=== PATIENT | female | born 1935 | race Caucasian/White ===

== ENCOUNTER 2017-01-07 10:11 | Emergency (ER) | payer MEDICARE ==
[~2017-01-07] VITALS: Ht 167.6 cm; Wt 77.1 kg
[~2017-01-07 10:11] MED LIST: ACIDOPHILUS1 CAP PO; AUGMENTIN 875-1 EACH PO; BACTRIM DS 8001 TAB PO; CLINDAMYCIN300 MG PO; CRESTOR10 MG PO; LISINOPRIL 10MG10 MG PO; LOPRESSOR 50 MG50 MG PO; LOVASTATIN40 MG PO; METAMUCIL0.52 GM PO; MIRALAX17 GM/PACK PO; MOBIC15 MG PO; NITROGLYCERIN0.4 MG SL; PERCOCET 5/3251 EACH PO; PREDNISONE 20MG20 MG PO; PROBIOTIC FORMU1 CA2 PO; SULFACETAMIDE S15 M1 OP; TOPROL XL100 MG PO; VANCOCIN HCL1000 M1 IV
[2017-01-07] MEDS ORDERED: GABAPENTIN100 MG PO (10:23)
[2017-01-07] MEDS ORDERED: GABAPENTIN100 M1 PO (10:24)
[2017-01-07] MEDS ORDERED: DULOXETINE HYDR30 MG PO (10:24)
--- NOTE | 2017-01-07 10:34 | Emergency Room Report ---
History of Present Illness Time Seen by [id number] Presenting Problem in Triage Pt arrived:Walked Presenting Problem:PT REPORTS TRIPPING AND FALLING WHILE OUTSIDE TRIMMING BUSHES. PT STATES HIT HER HEAD ON AN IRON PLANTER. PT REPORTS FEELING DIZZY WHILE WALKING. PT DENIES LOC Onset of symptoms date/time:01/07/17 or onset unknown for: Treatment Prior to Arrival: MAINTENANCE LEADER Provided by: Sepsis Risk Assessment: Temp: 98.0 B/P: 184/81 MAP: 115 Pulse: 75 Resp: 16 Recent fever? N Clinical Suspician of Infection? N Mental Status: 1 - Regular (Normal Baseline) Sepsis Risk:Low Sepsis Risk Have you (or family members/close friends) recently traveled outside the [place]? N If Yes, where/when: Have you had exposure to infectious disease within the past month? N TB? Other? Specify: Patient has baseline peripheral neuropathy, unknown etiology, per [facility]. She uses her walker only occasionally. Today she pitched forward while gardening, with neg LOC. 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 She has diffuse neck pain without any acute neurological changes. She denies any precipitating vertigo, near syncope, or chest pain or palpitations. ALLERGIES Coded Allergies: hydromorphone (From DILAUDID) (PARALYSIS 02/20/16) metronidazole (NA-NAUSEA/VOMITING 02/20/16) morphine (02/20/16) pentazocine (02/20/16) Home Medications Active Scripts Meloxicam (Mobic 15MG) 15 MG PO DAILY #30 TAB Prov: 09/20/15 Reported Medications LISINOPRIL (Lisinopril) 10 MG PO DAILY Gabapentin (Gabapentin 100MG) 300 MG PO TID #270 Gabapentin (Gabapentin 100MG) 400 MG PO QHS DULOXETINE HCL (Duloxetine Hydrochloride) 30 MG PO BID #60 History Medical History General CAD? No Angina: No [place]: No Hypertension? Yes Hyperlipidemia? Yes CHF? No DVT? No PE? No COPD? No Asthma? No Anemia? No GERD? Yes Gastric ulcers? No GI Bleed? No Hernia? No Thyroid Problems? No Hypothyroidism? No CVA? No Seizures? No Diabetes? No Renal Insuffiency? No End Stage Renal Disease? No UTI? No Stones? No BPH? No GB Disease: No Nephritic Syndrome? No Asplenia? No Hepatitis? No Sickle Cell Disease? No Arthritis? Yes Migraines? No Cataracts? Yes Glaucoma? No MRSA? No HIV? No TB? No Anxiety? No Depression? No Cancer? Yes Site: BREAST More? No Immunization Hx DT/Tetanus 1-4 Years Ago Flu 2015-16FSN Pneumonia Received In Past Surgical Hx Previous Surgery?Y BILAT MASTECTOMY RT R CUFF LT KNEE REPLACEMENT RT HAND SURGERYX4 HYSTERECTOMY Back Surgery LT HAND SURGERY X 1 Family History Family Hx Diabetes No CAD Yes Hypertension Yes Hyperlipidemia Yes Cancer No TB No Social History Smoking Hx Smoker: Never Smoker Tobacco: No Packs/day N/A Alcohol Alcohol: No Review of Systems All Other Systems Reviewed and Negative Musculoskeletal see HPI Psychiatric/Neurological see HPI, pre-existing deficit Physical Exam Vital Signs Vital Signs Date Time Temp Pulse Resp B/P Pulse O2 O2 Flow FiO2 Ox Delivery Rate 01/07 1015 98.0 75 16 184/81 97 General Appearance normal appearance, WD/WN, no apparent distress Eye Exam - bilateral eye normal exam, bilateral eye PERRL, bilateral eye EOMI Ear, Nose, Throat normal ENT inspection, laceration just posterior and superior to left ear, about three cm, bleeding controlled, linear, subcutaneous, no FB. No crepitus, deformities, or stepoffs noted. Neck very mild muscular tenderness diffusely w/o any vertebral tenderness. Respiratory Status Yes: trachea midline, chest symmetrical, non tender chest. No: respiratory distress, tender on palpation, use of accessory muscles, pain on inspiration, pain on expiration, productive cough, non productive cough. Lung Sounds bilateral: normal breath sounds, lungs clear. Cardiovascular normal exam, regular rate/rhythm, no peripheral edema, no gallop, no JVD, no murmur, no rub, normal peripheral pulses Gastrointestinal normal bowel sounds, normal exam, non tender, soft, no organomegaly, no pulsatile mass, no guarding, no rebound Extremities non-tender (R hip pain on palpation), normal range of motion, normal inspection, normal capillary refill, pelvis stable Neurologic alert (personnel consultant equal speech clear), material lister II-XII nml as tested, oriented x 3 (baseline periphral neuropathy), No tremor; nonfocal exam; has diminished sensation baseline to all limbs distally. Glascow Coma Scale Glascow Coma Scale Response Value EYE response: 4 Spontaneously 4 MOTOR response: 6 OBEYS 6 VERBAL response: 5 Oriented & Converses 5 Total 15 Reflexes Reflexes normal No DTR 1+ ankle (R), 1+ ankle (L) (has baseline neuro deficits) Skin laceration(s) (see above: scalp lac) Medical Decision Making LABS/Meds/Orders Pt receiving controlled substance in ED? No Results/Orders Current Medication Orders Sig/Fernando Start time Last Medication Dose Route Stop Time Status Admin Acetaminophen 650 MG ONCE ONE 01/07 1130 AC PO 01/07 1131 Lidocaine HCl 10 ML ONCE ONE 01/07 1045 DC SC 01/07 1046 Lidocaine HCl 0 .STK-MED ONE 01/07 1044 DC .ROUTE Orders Procedure Date/time Status DIET-NOTHING BY MOUTH 01/07 L Active HIP RT 2-3V W/PELVIS IF PERFOR 01/[address] HEAD REQ 01/[address] SCAN REQ 01/07 1019 Active XRAY/CT/US XRAY/CT/US XRAY hip XR interpretation by reviewed by me Xray Results normal/NAD, no fracture seen (DJD neg acute) CT head, C-spine CT interpretation by reviewed by me (report reviewed) Time results known: 1117 CT Results no fracture seen (DJD and stenosis neg acute) Procedures Laceration/Wound Repair Laceration/Wound Repair Risks/benefits discussed with pt/guardian? Yes Tetanus status up to date Wound Location head Wound Length (cm) 3 Wound's Depth, Shape sucutaneous tissue, linear Wound Explored clean Irrigated w/ Saline (ccs) 20 Wound Prep Hibiclens Anesthesia 1% Lidocaine Volume Anesthetic (ccs) 3 Wound Debrided none Wound Repaired With nancy Layer Closure No Total Number Sutures 4 Sterile Dressing Applied No Departure Departure Time of Disposition 111 Disposition DC Home or Self Care(routine) Clinical Impression Primary Impression: Laceration of head Qualifiers: Encounter type: initial encounter Foreign body presence: without foreign body Laterality: left Secondary Impressions: Contusion of hip, right Qualifiers: Encounter type: initial encounter Qualified Code: S70.01XA - Contusion of right hip, initial encounter Fall Condition STABLE Referrals Benjy Mcduffie MD (Family) Patient Instructions Laceration Repair Additional Instructions [place] out per Dr. Mcduffie in 7-10 days. Discharge Counseling Counseled pt/family regarding diagnosis, test results, medications/RX, home care, follow up needs ED Critical Care Critical Care No at 1127
--- NOTE | 2017-01-07 10:34 | Emergency Room Report ---
History of Present Illness Time Seen by [id number] Presenting Problem in Triage Pt arrived:Walked Presenting Problem:PT REPORTS TRIPPING AND FALLING WHILE OUTSIDE TRIMMING BUSHES. PT STATES HIT HER HEAD ON AN IRON PLANTER. PT REPORTS FEELING DIZZY WHILE WALKING. 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 N Clinical Suspician of Infection? N Mental Status: 1 - Regular (Normal Baseline) Sepsis Risk:Low Sepsis Risk Have you (or family members/close friends) recently traveled outside the [place]? N If Yes, where/when: Have you had exposure to infectious disease within the past month? N TB? Other? Specify: Patient has baseline peripheral neuropathy, unknown etiology, per [facility]. She uses her walker only occasionally. Today she pitched forward while gardening, with neg LOC. 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 She has diffuse neck pain without any acute neurological changes. She denies any precipitating vertigo, near syncope, or chest pain or palpitations. ALLERGIES Coded Allergies: hydromorphone (From DILAUDID) (PARALYSIS 02/20/16) metronidazole (NA-NAUSEA/VOMITING 02/20/16) morphine (02/20/16) pentazocine (02/20/16) Home Medications Active Scripts Meloxicam (Mobic 15MG) 15 MG PO DAILY #30 TAB Prov: 09/20/15 Reported Medications LISINOPRIL (Lisinopril) 10 MG PO DAILY Gabapentin (Gabapentin 100MG) 300 MG PO TID #270 Gabapentin (Gabapentin 100MG) 400 MG PO QHS DULOXETINE HCL (Duloxetine Hydrochloride) 30 MG PO BID #60 History Medical History General CAD? No Angina: No [place]: No Hypertension? Yes Hyperlipidemia? Yes CHF? No DVT? No PE? No COPD? No Asthma? No Anemia? No GERD? Yes Gastric ulcers? No GI Bleed? No Hernia? No Thyroid Problems? No Hypothyroidism? No CVA? No Seizures? No Diabetes? No Renal Insuffiency? No End Stage Renal Disease? No UTI? No Stones? No BPH? No GB Disease: No Nephritic Syndrome? No Asplenia? No Hepatitis? No Sickle Cell Disease? No Arthritis? Yes Migraines? No Cataracts? Yes Glaucoma? No MRSA? No HIV? No TB? No Anxiety? No Depression? No Cancer? Yes Site: BREAST More? No Immunization Hx DT/Tetanus 1-4 Years Ago Flu 2015-16FSN Pneumonia Received In Past Surgical Hx Previous Surgery?Y BILAT MASTECTOMY RT R CUFF LT KNEE REPLACEMENT RT HAND SURGERYX4 HYSTERECTOMY Back Surgery LT HAND SURGERY X 1 Family History Family Hx Diabetes No CAD Yes Hypertension Yes Hyperlipidemia Yes Cancer No TB No Social History Smoking Hx Smoker: Never Smoker Tobacco: No Packs/day N/A Alcohol Alcohol: No Review of Systems All Other Systems Reviewed and Negative Musculoskeletal see HPI Psychiatric/Neurological see HPI, pre-existing deficit Physical Exam Vital Signs Vital Signs Date Time Temp Pulse Resp B/P Pulse O2 O2 Flow FiO2 Ox Delivery Rate 01/07 1015 98.0 75 16 184/81 97 General Appearance normal appearance, WD/WN, no apparent distress Eye Exam - bilateral eye normal exam, bilateral eye PERRL, bilateral eye EOMI Ear, Nose, Throat normal ENT inspection, laceration just posterior and superior to left ear, about three cm, bleeding controlled, linear, subcutaneous, no FB. No crepitus, deformities, or stepoffs noted. Neck very mild muscular tenderness diffusely w/o any vertebral tenderness. Respiratory Status Yes: trachea midline, chest symmetrical, non tender chest. No: respiratory distress, tender on palpation, use of accessory muscles, pain on inspiration, pain on expiration, productive cough, non productive cough. Lung Sounds bilateral: normal breath sounds, lungs clear. Cardiovascular normal exam, regular rate/rhythm, no peripheral edema, no gallop, no JVD, no murmur, no rub, normal peripheral pulses Gastrointestinal normal bowel sounds, normal exam, non tender, soft, no organomegaly, no pulsatile mass, no guarding, no rebound Extremities non-tender (R hip pain on palpation), normal range of motion, normal inspection, normal capillary refill, pelvis stable Neurologic alert (oracle hrms consultant equal speech clear), burlapper II-XII nml as tested, oriented x 3 (baseline periphral neuropathy), No tremor; nonfocal exam; has diminished sensation baseline to all limbs distally. Glascow Coma Scale Glascow Coma Scale Response Value EYE response: 4 Spontaneously 4 MOTOR response: 6 OBEYS 6 VERBAL response: 5 Oriented & Converses 5 Total 15 Reflexes Reflexes normal No DTR 1+ ankle (R), 1+ ankle (L) (has baseline neuro deficits) Skin laceration(s) (see above: scalp lac) Medical Decision Making LABS/Meds/Orders Pt receiving controlled substance in ED? No Results/Orders Current Medication Orders Sig/Fernando Start time Last Medication Dose Route Stop Time Status Admin Acetaminophen 650 MG ONCE ONE 01/07 1130 AC PO 01/07 1131 Lidocaine HCl 10 ML ONCE ONE 01/07 1045 DC SC 01/07 1046 Lidocaine HCl 0 .STK-MED ONE 01/07 1044 DC .ROUTE Orders Procedure Date/time Status DIET-NOTHING BY MOUTH 01/07 L Active HIP RT 2-3V W/PELVIS IF PERFOR 01/[address] HEAD REQ 01/[address] SCAN REQ 01/07 1019 Active XRAY/CT/US XRAY/CT/US XRAY hip XR interpretation by reviewed by me Xray Results normal/NAD, no fracture seen (DJD neg acute) CT head, C-spine CT interpretation by reviewed by me (report reviewed) Time results known: 1117 CT Results no fracture seen (DJD and stenosis neg acute) Procedures Laceration/Wound Repair Laceration/Wound Repair Risks/benefits discussed with pt/guardian? Yes Tetanus status up to date Wound Location head Wound Length (cm) 3 Wound's Depth, Shape sucutaneous tissue, linear Wound Explored clean Irrigated w/ Saline (ccs) 20 Wound Prep Hibiclens Anesthesia 1% Lidocaine Volume Anesthetic (ccs) 3 Wound Debrided none Wound Repaired With nancy Layer Closure No Total Number Sutures 4 Sterile Dressing Applied No Departure Departure Time of Disposition 111 Disposition DC Home or Self Care(routine) Clinical Impression Primary Impression: Laceration of head Qualifiers: Encounter type: initial encounter Foreign body presence: without foreign body Laterality: left Secondary Impressions: Contusion of hip, right Qualifiers: Encounter type: initial encounter Qualified Code: S70.01XA - Contusion of right hip, initial encounter Fall Condition STABLE Referrals Benjy Mcduffie MD (Family) Patient Instructions Laceration Repair Additional Instructions [place] out per Dr. Mcduffie in 7-10 days. Discharge Counseling Counseled pt/family regarding diagnosis, test results, medications/RX, home care, follow up needs ED Critical Care Critical Care No at 1124
--- NOTE | 2017-01-07 10:59 | RADIOLOGY REPORT PS360 ---
CT HEAD W/O CONTRAST HISTORY: Headache/head pain following injury the left side of the head, contusion RECENT FALL ORDERING PHYSICIAN: Renetta Yip MD PATIENT AGE: 81 years COMPARISON: None TECHNIQUE: Axial images obtained without contrast. Brain and bone windows reviewed. FINDINGS: No midline shift, mass effect, intracranial hemorrhage, hydrocephalus, or extra-axial fluid collection is evident. There is generalized atrophy with nonspecific hypoattenuation in the periventricular region and mild prominence of the lateral ventricles likely due to the volume loss. The calvarium has an unremarkable appearance. Small scalp contusion noted in the left parietal region No mastoid effusion. The visualized paranasal sinuses are unremarkable. IMPRESSION: 1. No acute intracranial pathology. 2. Atrophy with chronic ischemic changes. 3. Small scalp contusion
--- NOTE | 2017-01-07 11:04 | RADIOLOGY REPORT PS360 ---
CT CERVICAL SPINE W/O CONT INDICATION: Neck pain following injury RECENT FALL ORDERING PHYSICIAN: Renetta Yip MD PATIENT AGE: 81 years COMPARISON: None TECHNIQUE: Axial images are obtained without contrast. Sagittal and coronal reformatted images are reviewed as well. 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 No fracture or dislocation is evident. There is multilevel degenerative disc disease with facet spondylosis. There is bilateral foraminal narrowing at C2-C3 and left foraminal narrowing at C3-C4. Severe degenerative disc disease noted at C5-C6 with endplate osteophytes with canal stenosis and bilateral foraminal and lateral recess narrowing. 3 mm anterolisthesis C4 on C5 likely degenerative. There is minimal disc calcification at C2-C3 and C3-C4. Incidental note is made of enlarged right lobe of the thyroid gland with heterogeneous density with some calcification. There is an 11 mm hypodensity nodule in the mid aspect of the right thyroid gland. IMPRESSION: 1. No acute fracture. 2. 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
[2017-01-07 11:41] VITALS: BP 176/76
--- NOTE | 2017-01-07 12:41 | RADIOLOGY REPORT PS360 ---
HIP RT 2-3V W/PELVIS IF PERFOR HISTORY: Right hip pain following injury fell two weeks ago, R hip pain since that time ORDERING PHYSICIAN: Renetta Yip MD PATIENT AGE: 81 years COMPARISON: None FINDINGS: No obvious fracture or dislocation. There are mild osteoarthritic changes of the hips as well as some mild calcification of the lateral aspect of the hips suggesting chondrocalcinosis. No lytic or blastic change. Degenerative changes are present in the SI joints and pubis. IMPRESSION: 1. No acute finding. 2. Degenerative change. 3. Consider MRI or CT for more thorough evaluation if symptoms persist
== END 2017-01-07 11:41 | disposition home or self-care (01) ==
LOC: ER 10:11
PROC: 0HQ0XZZ Repair Scalp Skin, External Approach (ICD-10-PCS; principal; 2017-01-07)
DX: S01.01XA Laceration without foreign body of scalp, initial encounter (principal); W01.0XXA Fall on same level from slipping, tripping and stumbling without subsequent striking against object, initial encounter; Y92.017 Garden or yard in single-family (private) house as the place of occurrence of the external cause; S70.01XA Contusion of right hip, initial encounter; I10 Essential (primary) hypertension; K21.9 Gastro-esophageal reflux disease without esophagitis